=== PATIENT | male | born 1970 | race Caucasian/White ===

== ENCOUNTER 2017-05-01 12:05 | Emergency (ER) | payer OTHER ==
[2017-05-01] MEDS ORDERED: HYDROMORPHONE HCL 2 MG/ML SOL IV ONE ×2 (12:22→13:32)
[2017-05-01] MEDS ORDERED: KETOROLAC TROMETHAMINE 30 MG/ML SOL IV ONE (12:22)
[2017-05-01] MEDS ORDERED: ONDANSETRON HCL 4 MG/2 ML SOL IV ONE (12:37)
[2017-05-01] MEDS ORDERED: SODIUM CHLORIDE 0.9% FLUSH 10 ML SOL IV PRN (12:38)
[2017-05-01] MEDS ORDERED: KETOROLAC TROMETHAMINE 30 MG/ML SOL ONE (12:39)
[2017-05-01] MEDS ORDERED: ONDANSETRON HCL 4 MG/2 ML SOL ONE (12:39)
[2017-05-01] MEDS ORDERED: HYDROMORPHONE HCL 2 MG/ML SOL ONE ×2 (12:39→13:34)
[2017-05-01 13:14] VITALS: TEMP 99.7
[2017-05-01 13:22] LABS: CALCIUM 9.6 mg/dl (8.5-10.1)
[2017-05-01 14:32] VITALS: BP 136/87; PULSE 87; RESP 16; O2SAT 97
== END 2017-05-01 15:05 | disposition home or self-care (01) | DRG 948 ==
LOC: ED 12:05
DX: G89.3 Neoplasm related pain (acute) (chronic) (principal); C77.2 Secondary and unspecified malignant neoplasm of intra-abdominal lymph nodes; C78.00 Secondary malignant neoplasm of unspecified lung; C64.9 Malignant neoplasm of unspecified kidney, except renal pelvis; C79.51 Secondary malignant neoplasm of bone; R10.84 Generalized abdominal pain; M54.5 Low back pain
CPT/HCPCS: 74176; 80048; 96374; 96375; 99284; 99285; J1170; J1885; J2405